=== PATIENT | female | born 1950 | race Caucasian/White ===

== ENCOUNTER 2019-01-13 19:15 | Emergency (ER) | payer MEDICARE, OTHER ==
[~2019-01-13] VITALS: Ht 162.6 cm; Wt 64.4 kg
[2019-01-13 20:03] VITALS: BP 133/69
--- NOTE | 2019-01-13 20:04 | ER.PDOC ---
General Chief Complaint: Requesting Medical Care Stated Complaint: ABD PAIN Time seen by MD: 19:58 Source: patient Exam Limitations: no limitations History of Present Illness Initial Comments upper abd pain for two days, no nausea or vomiting or diarrhea, had ruptured appendix approx one month ago was operated on by dr morfin [place], [facility] and was doing better then developed abd pain, patient called dr morfin and was told to go to er and get a ct scan of abd. Timing/Duration: other Severity/Quality: moderate Radiation: RUQ, epigastric Associated Symptoms: back pain Exacerbated by: food Vital Signs First Vital Signs Date Time Temp Pulse Resp B/P (MAP) Pulse Ox O2 Delivery O2 Flow Rate FiO2 01/13/19 20:00 99.0 87 16 100 Room Air 01/13/19 20:03 133/69 (90) Last Vital Signs Date Time Temp Pulse Resp B/P (MAP) Pulse Ox O2 Delivery O2 Flow Rate FiO2 01/13/19 21:41 98.4 82 16 132/63 (86) 100 Room Air Constitutional: denies chills, denies fever EENTM: denies ear pain, denies nose pain Respiratory: denies cough, denies shortness of breath Cardiovascular: denies chest pain, denies palpitations, denies syncope Gastrointestinal: abdominal pain Genitourinary: denies flank pain Musculoskeletal: denies neck pain Skin: denies rash Psychiatric/Neurological: denies headache Hematologic/Lymphatic: denies blood clots Physical Exam General Appearance: No Apparent Distress HEENT: PERRL/EOMI, Normal ENT Inspection Neck: Non-Tender, Full Range of Motion Respiratory: chest non-tender, lungs clear, normal breath sounds Cardiovascular: Normal Peripheral Pulses, Regular Rate, Rhythm Gastrointestinal: Soft, Tenderness Back: No Vertebral Tenderness Extremities: Normal Range of Motion, Non-Tender Neurologic/Psychiatric: case finisher II-XII NML as Tested, No Motor/Sensory Deficits, Alert, Normal Mood/Affect, Oriented x 3 Skin: Normal Color Results/Orders Results/Orders Orders - HAYLIE GIRON MD Cbc With Auto Diff (01/13/19 20:04) Comprehensive Metabolic Panel (01/13/19 20:04) Amylase (01/13/19 20:04) Lipase (01/13/19 20:04) Helicobacter Pylori (01/13/19 20:04) Ct Abd/Pel With Iv Contrast (01/13/19 20:04) Urinalysis (01/13/19 20:04) Saline Lock (01/13/19 20:04) Diphenhydramine Hcl (Benadryl) (01/13/19 20:19) Methylprednisolone Sod Succ (Solu-Medrol (01/13/19 20:19) Diphenhydramine Hcl (Benadryl) (01/13/19 20:37) Methylprednisolone Sod Succ (Solu-Medrol (01/13/19 20:37) Vital Signs Date Time Temp Pulse Resp B/P (MAP) Pulse Ox O2 Delivery O2 Flow Rate FiO2 01/13/19 21:41 98.4 82 16 132/63 (86) 100 Room Air 01/13/19 21:17 98.6 82 16 139/63 (88) 100 Room Air 01/13/19 20:43 99.2 84 16 132/63 (86) 100 Room Air 01/13/19 20:05 99.0 87 16 01/13/19 20:03 99.0 87 16 133/69 (90) 100 Room Air 01/13/19 20:00 99.0 87 16 100 Room Air Administered Medications Medications (Trade) Dose Ordered Sig/Dorothy Route PRN Reason Start Time Stop Time Status Last Admin Dose Admin Diphenhydramine HCl (Benadryl) 50 mg STAT STAT IV 01/13/19 20:19 01/13/19 20:22 DC 01/13/19 20:40 50 MG Methylprednisolone Sodium Succinate (Solu-Medrol) 125 mg STAT STAT IV 01/13/19 20:19 01/13/19 20:22 DC 01/13/19 20:40 125 MG Laboratory Tests Test 01/13/19 19:47 01/13/19 20:10 Urine Collection Type CCMS Urine Color YELLOW (YELLOW) Urine Appearance SLIGHTLY HAZY (CLEAR) H Urine Bilirubin NEGATIVE MG/DL (NEGATIVE) Urine Ketones NEGATIVE (NEGATIVE) Urine Specific [place] 1.015 (1.005-1.035) Urine pH 9 (5.0-6.0) Urine Protein NEGATIVE (NEGATIVE) Urine Urobilinogen NORMAL (NEGATIVE) Urine Nitrate NEGATIVE (NEGATIVE) Urine Leukocyte Esterase NEGATIVE (NEGATIVE) Urine Blood NEGATIVE (NEGATIVE) Urine RBC NONE SEEN RBC/HPF (NONE Urine WBC 2-5 WBC/HPF (0-2) Urine Squamous Epithelial Cells FEW #/HPF (FEW) Urine Amorphous Sediment SMALL (NONE SEEN) Urine Bacteria RARE (NONE SEEN) Urine Glucose NORMAL (NEGATIVE) White Blood Count 12.1 10^3/uL (4.5-11.0) H Red Blood Count 3.96 10^6/uL (4.00-5.20) L Hemoglobin 11.8 g/dL (12.0-15.0) L Hematocrit 34.7 % (36.0-46.0) L Mean Corpuscular Volume 87.6 fL (78-100) Mean Corpuscular Hemoglobin 29.8 pg (26-34) Mean Corpuscular Hemoglobin Concent 34.0 g/dL (33-37) Red Cell Distribution Width 13.4 % (11.5-14.5) Platelet Count 268 10^3/uL (150-400) Mean Platelet Volume 9.9 fL (7.8-11.0) Neutrophils (%) (Auto) 65.7 % (41.0-85.0) Lymphocytes (%) (Auto) 22.6 % (24.0-44.0) L Monocytes (%) (Auto) 9.5 % (5.0-12.0) Neutrophils # (Auto) 7.9 10^3/uL (1.8-7.7) H Lymphocytes # (Auto) 2.7 10^3/uL (1.0-4.8) Monocytes # (Auto) 1.2 10^3/uL (0.3-0.8) H Absolute Immature Granulocyte (auto 0.02 10^3 u/L (0-2) Immature Granulocytes % 0.20 % (0.00-0.50) Eosinophils % 1.7 % (0.0-5.0) Basophils % 0.3 % (0.0-0.2) H Basophils # 0.0 10^3/uL (0.0-0.1) Eosinophil Count 0.2 10^3/uL (0.0-0.2) Sodium Level 142 mmol/L (132-145) Potassium Level 3.4 mmol/L (3.6-5.2) L Chloride Level 103.0 mmol/L (96-109) Carbon Dioxide Level 25.4 mmol/L (20.0-32) Anion Gap 17.0 Blood Urea Nitrogen 10 mg/dL (7-18) Creatinine 0.93 mg/dL (0.59-1.40) Estimated GFR () 73.0 (>/=60) BUN/Creatinine Ratio 10.0 Glucose Level 100 mg/dL (70-110) Calcium Level 9.1 mg/dL (8.4-10.5) Total Bilirubin 0.6 mg/dL (0.2-1.0) Aspartate Amino Transferase (AST) 19 U/L (0-35) Alanine Aminotransferase (ALT) 30 U/L (12-78) Alkaline Phosphatase 75 U/L (50-136) Total Protein 7.1 g/dL (6.4-8.2) Albumin 3.5 g/dL (3.4-5.0) Globulin 3.6 Amylase Level 32 U/L (25-115) Lipase 160 U/L (114-286) Helicobacter pylori Screen POSITIVE (NEGATIVE) Progress Progress called dr morfni office [phone] to report lab results and ct , office answering service gave number of [phone] which went to voice mail x 2, so called answering service back at [address] clarke labs and ct scan results he is ok with discharge but can see at [facility] if patient not comfortable, patient advised and ok with discharge and follow up Course Vitals & review Data Vital Sign - Last 24 Hours 01/13/19 01/13/19 01/13/19 01/13/19 20:00 20:03 20:05 20:43 Temp 99.0 99.0 99.0 99.2 Pulse 87 87 87 84 Resp 16 16 16 16 B/P (MAP) 133/69 (90) 132/63 (86) Pulse Ox 100 100 100 O2 Delivery Room Air Room Air Room Air 01/13/19 01/13/19 21:17 21:41 Temp 98.6 98.4 Pulse 82 82 Resp 16 16 B/P (MAP) 139/63 (88) 132/63 (86) Pulse Ox 100 100 O2 Delivery Room Air Room Air Laboratory Tests Test 01/13/19 19:47 01/13/19 20:10 Urine Collection Type CCMS Urine Color YELLOW Urine Appearance SLIGHTLY HAZY Urine Bilirubin NEGATIVE MG/DL Urine Ketones NEGATIVE Urine Specific [place] 1.015 Urine pH 9 Urine Protein NEGATIVE Urine Urobilinogen NORMAL Urine Nitrate NEGATIVE Urine Leukocyte Esterase NEGATIVE Urine Blood NEGATIVE Urine RBC NONE SEEN RBC/HPF Urine WBC 2-5 WBC/HPF Urine Squamous Epithelial Cells FEW #/HPF Urine Amorphous Sediment SMALL Urine Bacteria RARE Urine Glucose NORMAL White Blood Count 12.1 10^3/uL Red Blood Count 3.96 10^6/uL Hemoglobin 11.8 g/dL Hematocrit 34.7 % Mean Corpuscular Volume 87.6 fL Mean Corpuscular Hemoglobin 29.8 pg Mean Corpuscular Hemoglobin Concent 34.0 g/dL Red Cell Distribution Width 13.4 % Platelet Count 268 10^3/uL Mean Platelet Volume 9.9 fL Neutrophils (%) (Auto) 65.7 % Lymphocytes (%) (Auto) 22.6 % Monocytes (%) (Auto) 9.5 % Neutrophils # (Auto) 7.9 10^3/uL Lymphocytes # (Auto) 2.7 10^3/uL Monocytes # (Auto) 1.2 10^3/uL Absolute Immature Granulocyte (auto 0.02 10^3 u/L Immature Granulocytes % 0.20 % Eosinophils % 1.7 % Basophils % 0.3 % Basophils # 0.0 10^3/uL Eosinophil Count 0.2 10^3/uL Sodium Level 142 mmol/L Potassium Level 3.4 mmol/L Chloride Level 103.0 mmol/L Carbon Dioxide Level 25.4 mmol/L Anion Gap 17.0 Blood Urea Nitrogen 10 mg/dL Creatinine 0.93 mg/dL Estimated GFR () 73.0 BUN/Creatinine Ratio 10.0 Glucose Level 100 mg/dL Calcium Level 9.1 mg/dL Total Bilirubin 0.6 mg/dL Aspartate Amino Transf (AST/SGOT) 19 U/L Alanine Aminotransferase (ALT/SGPT) 30 U/L Alkaline Phosphatase 75 U/L Total Protein 7.1 g/dL Albumin 3.5 g/dL Globulin 3.6 Amylase Level 32 U/L Lipase 160 U/L Helicobacter pylori Screen POSITIVE Departure Time of Disposition: 21:47 Disposition: 01 HOME, SELF-CARE Impression: Primary Impression: Abdominal pain Additional Impression: H. pylori infection Condition: Stable Patient Instructions: Abdominal Pain, Helicobacter Pylori Antibodies Test Referrals: PCP,UNKNOWN (PCP) PRIMARY CARE PROVIDER Additional Instructions: return for any worsening symptoms Duration or Time Spent with Pa: 15 Problem Qualifiers HAYLIE GIRON MD Jan 13, 2019 20:04
[2019-01-13 20:05] VITALS: BP 133/69
[2019-01-13 20:15] LABS: BILIRUBIN,URINE NEGATIVE (NEGATIVE); UROBILINOGEN,URINE NORMAL (NEGATIVE)
[2019-01-13] MEDS ORDERED: SOLU-MEDROL IV STA (20:19)
[2019-01-13] MEDS ORDERED: BENADRYL IV STA (20:19)
[2019-01-13 20:23] LABS: BASOPHIL % 0.3 % (0.0-0.2); EOSINOPHIL # 0.2 10^3/uL (0.0-0.2); EOSINOPHIL % 1.7 % (0.0-5.0); HEMOGLOBIN 11.8 g/dL (12.0-15.0); LYMPHOCYTES # 2.7 10^3/uL (1.0-4.8); LYMPHOCYTES % 22.6 % (24.0-44.0); MEAN CELL HGB 29.8 pg (26-34); MEAN CORP VOLUME 87.6 fL (78-100); MEAN PLATELET VOLUME 9.9 fL (7.8-11.0); MONOCYTES # 1.2 10^3/uL (0.3-0.8); MONOCYTES % 9.5 % (5.0-12.0); NEUTROPHIL # 7.9 10^3/uL (1.8-7.7); NEUTROPHILS % 65.7 % (41.0-85.0); RED CELL DISTRIBUTION WIDTH 13.4 % (11.5-14.5); WHITE BLOOD CELL 12.1 10^3/uL (4.5-11.0)
[2019-01-13 20:29] LABS: APPEARANCE,URINE SLIGHTLY HAZY (CLEAR); UA COLOR YELLOW (YELLOW)
[2019-01-13 20:34] LABS: CALCIUM 9.1 mg/dL (8.4-10.5); CARBON DIOXIDE 25.4 mmol/L (20.0-32)
[2019-01-13] MEDS ORDERED: SOLU-MEDROL ONE (20:37)
[2019-01-13] MEDS ORDERED: BENADRYL ONE (20:37)
[2019-01-13 20:43] VITALS: BP 132/63
[2019-01-13 21:17] VITALS: BP 139/63
--- NOTE | 2019-01-13 21:24 | DIREP ---
PROCEDURE:CT ABDOMEN/PELVIS W/ CONTRAST COMPARISON:None. INDICATIONS:upper and right abd pain TECHNIQUE:Axial images were created through the abdomen and pelvis with non-ionic intravenous contrast material. No oral contrast was administered. Sagittal and coronal reconstructions were performed from source images. FINDINGS: LUNG BASES:Normal. No visible pulmonary or pleural disease. LIVER:There are a couple small cysts in the right hepatic lobe. BILIARY:Normal. No visible dilatation or calcification. PANCREAS:Edema throughout the pancreatic head consistent with acute pancreatitis. No peripancreatic associated fluid collection. SPLEEN:Normal. No enlargement or focal lesion. ADRENALS:Normal. No mass or enlargement. URINARY TRACT:There is a tiny cyst lower pole left kidney. Otherwise both kidneys are within normal limits. AORTA/VASCULAR:Scattered calcified plaque. RETROPERITONEUM:Normal. No mass or adenopathy. BOWEL/MESENTERY:Mild diverticulosis of the sigmoid colon without acute diverticulitis. ABDOMINAL WALL:Normal. No mass or hernia. PELVIC ORGANS:Uterus is not visible. BONES:Normal for age. No bony lesion or acute fracture. OTHER:Negative. CONCLUSION:Findings consistent with acute pancreatitis. Correlate with labs. Dictated by: Bartolo Douglass M.D. on 01/13/2019 at 09:16 PM
--- NOTE | 2019-01-13 21:33 | NUR ---
Chyna Ruffin on phone with Dr. Clemente's answering service
--- NOTE | 2019-01-13 21:36 | NUR ---
Chyna Ruffin on phone with Dr. Clemente
[2019-01-13 21:41] VITALS: BP 132/63
--- NOTE | 2019-01-13 21:58 | NUR ---
IV IV removed, Tip intact. Placed cottonball over IV site, secured with coban. Instructed patient to remove coban on the arrival of home. Patient expressed understanding
== END 2019-01-13 22:00 | disposition home or self-care (01) ==
LOC: ER 19:15
DX: R10.11 Right upper quadrant pain (principal); B96.81 Helicobacter pylori [H. pylori] as the cause of diseases classified elsewhere
CPT/HCPCS: 36415; 74177; 80053; 81000; 82150; 83690; 85025; 86677; 96374; 96375; 99285; J1200; J2930; Q9965